=== PATIENT | male | born 1950 | race Hispanic/Latino ===

== ENCOUNTER 2016-05-11 06:49 | Outpatient (CLI) | payer OTHER ==
[2016-05-11 07:53] LABS: #Basophils 0.1 thou/uL (0.0-0.2); #Neutrophils 5.8 thou/uL (1.40-6.50); %Eosinophils 9.2 % (0.0-10.0); %Lymphocytes 27.3 % (21.0-51.0); %Monocytes 8.8 % (0.0-10.0); Hematocrit 46.8 % (42.0-52.0); Mean Platelet Volume 7.2 fL (7.4-10.4); Red Blood Cell (RBC) Count 4.97 mill/uL (4.70-6.10); White Blood Cell (WBC) Count 10.8 thou/uL (4.8-10.8)
[2016-05-11 08:06] LABS: Bilirubin Negative (Negative); Blood, Urine Negative (Negative); Glucose, Urine (Dipstick) Negative (Negative); Ketone, Urine Negative (Negative); Nitrite Negative (Negative); Protein, Urine (Dipstick) Negative (Neg-Trace); Urobilinogen 0.2 mg/dL (0.2-1.0)
[2016-05-11 08:09] LABS: ALT (SGPT) 24 U/L (0-55); AST (SGOT) 21 U/L (5-34); Alkaline Phosphatase 76 U/L (40-150); Anion Gap 14 mmol/L (10-20); BUN (Urea Nitrogen) 14 mg/dL (8.4-25.7); Bilirubin, Total 0.7 mg/dL (0.2-1.2); Calc. Creatinine Clearance 0 mL/min (70-130); Calcium 9.4 mg/dL (7.8-10.44); Carbon Dioxide 25 mmol/L (23-31); Chloride 105 mmol/L (98-107); Estimated GFR-MDRD 83; Globulin 2.3 g/dL (2.4-3.5); LDL Cholesterol, Calculated 114 mg/dL; Protein, Total 6.7 g/dL (5.8-8.1)
== END 2016-05-11 06:50 | disposition home or self-care (01) ==
LOC: NAV LAB 06:49
PROVIDERS: ATTEND Internal Medicine
DX: Z00.00 Encounter for general adult medical examination without abnormal findings (principal); Z12.5 Encounter for screening for malignant neoplasm of prostate; E78.5 Hyperlipidemia, unspecified
CPT/HCPCS: 36415; 80053; 80061; 81003; 82270; 85025; G0103

== ENCOUNTER 2016-11-03 10:45 | Outpatient (CLI) | payer OTHER ==
--- NOTE | 2016-11-03 13:05 | RAD ---
RIGHT KNEE TWO VIEWS: History: Knee pain. FINDINGS: There are mild to moderate degenerative changes of the right knee. There is spurring from the tibial spine and posterior patella. Tiny spurs from the femoral and tibial condyles. Evidence of small alice nt effusion in the suprapatellar region. No fracture or acute lesion. There are mild to moderate degenerative changes as described. POS: [facility]
== END 2016-11-03 10:46 | disposition home or self-care (01) ==
LOC: NAV RAD 10:45
PROVIDERS: ATTEND Internal Medicine
DX: M25.561 Pain in right knee (principal)

== ENCOUNTER 2023-11-10 17:12 | Outpatient (CLI) | payer MEDICARE | END 2023-11-10 17:13 | disposition home or self-care (01) | LOC: NAV RAD 17:12 | PROVIDERS: ATTEND Family Medicine | DX: M25.851 Other specified joint disorders, right hip (principal) ==

== ENCOUNTER 2024-03-28 10:13 | Emergency (ER) | payer MEDICARE | END 2024-03-28 10:41 | disposition home or self-care (01) | LOC: NAV ERS 10:13 | DX: H11.32 Conjunctival hemorrhage, left eye (principal); H10.9 Unspecified conjunctivitis | CPT/HCPCS: 99282 ==